=== PATIENT | female | born 1990 | race Caucasian/White ===

== ENCOUNTER 2022-07-19 11:13 | Emergency (ER) | payer OTHER, MEDICAID, SELFPAY ==
[2022-07-19 11:24] VITALS: BP 125/75; PULSE 65; RESP 15; TEMP 36.7; O2SAT 96; BMI 39.9
[2022-07-19 11:57] VITALS: O2SAT 100
[2022-07-19 11:59] VITALS: BP 128/72; PULSE 71; O2SAT 96
[2022-07-19 12:00] VITALS: PULSE 74; O2SAT 97
[2022-07-19 12:00] LABS: Bacteria Urine None Seen; Culture Indicated Urine Cult Not Indicated; Mucus Urine 2+ (Negative); RBC Urine None Seen (0-5/HPF); WBC Urine 1-5/HPF (0-5/HPF)
--- NOTE | 2022-07-19 12:08 | DI.RAD.S_ITS ---
PROCEDURE: XR CHEST 2V INDICATIONS: pneumonia vs reactive airway TECHNIQUE: 2 views of the chest were acquired. COMPARISON: None. FINDINGS: Surgical changes and devices: None. Lungs and pleura: Lungs are clear. No pleural effusions or pneumothorax. Mediastinum: Mediastinal contours are normal. Heart size is normal. Bones and chest wall: No suspicious bony abnormalities. Soft tissues appear unremarkable. IMPRESSION: No evidence acute pulmonary process. Dictated by: Felipe Chávez M.D. on 07/19/2022 at 12:51 Approved by: Felipe Chávez M.D. on 07/19/2022 at 12:52
[2022-07-19] MEDS: KETOROLAC 30 MG/ML VIAL 15 MG IM (12:20)
[2022-07-19] MEDS: ONDANSETRON 4 MG ODT SL (12:21)
[2022-07-19] MEDS: ALBUTEROL/IPRATROPIUM 3 ML AMPUL INH (12:26)
--- NOTE | 2022-07-19 12:29 | ED_ITS ---
HPI - Abdominal Pain <ALEXI Bradley - Last Filed: 07/19/22 14:23> General Chief Complaint: Abdominal Pain Stated Complaint: stomach paincontraction like, Throwing up, nausa Time Seen by Provider: 07/19/22 12:03 Source: patient Mode of arrival: Ambulatory History of Present Illness HPI narrative: This is a 32-year-old female presents to the emergency department with epigastric cramping sensation after having 4 days of cough, congestion, nausea, vomiting, diarrhea, and concern for influenza respiratory illness. Patient endorses having a wet cough, having exposure to influenza a, and denies chest pain, difficulty breathing, or chest tightness. She states that she is using albuterol inhaler in the past for illness symptoms. Related Data Previous Rx's Medication Instructions Recorded albuterol sulfate 90 mcg/actuation 1 puff inhalation QID PRN 07/19/22 aerosol inhaler shortness of breath or wheezing #8.5 grams guaifenesin 400 mg tablet 400 mg PO QID PRN cough #14 tabs 07/19/22 ondansetron 4 mg disintegrating 4 mg PO Q8H PRN nausea and 07/19/22 tablet vomiting #10 tabs Allergies Allergy/AdvReac Type Severity Reaction Status Date / Time azithromycin Allergy Verified 07/19/22 11:29 Review of Systems <ALEXI Bradley - Last Filed: 07/19/22 14:23> Review of Systems Narrative: Review of systems is negative for acute abnormalities unless otherwise noted in HPI Patient History <ALEXI Bradley - Last Filed: 07/19/22 14:23> Social History Smoking Status: Unknown if ever smoked Smoking Status: Unknown if ever smoked alcohol intake frequency: holidays/special occasions only Substance Use Type: marijuana Exam <ALEXI Bradley - Last Filed: 07/19/22 14:23> Narrative Exam Narrative: Reviewed vitals signs and nursing notes. General: cooperative, comfortable, in no acute distress, well groomed, afebrile HEENT: symmetrical facial expressions, moist mucous membranes Cardiovascular: regular rate and rhythm, no peripheral edema, warm extremities Respiratory: normal effort, able to speak in complete sentences, without expiratory wheezes bilaterally, coarse in bilateral lower lobes, without stridor, or retractions, congestion present, wet sounding cough, wheezes improved after DuoNeb, squeaks were auscultated in bilateral bases before GI: abdomen soft, nontender to palpation, nondistended, without masses, rebound tenderness or exquisite tenderness with exam. MSK: moves all extremities, neurovascularly intact, no weakness, normal tone Skin: brisk capillary refill, without pallor or erythema Neuro: normal speech and cognition, A&O x3, ambulatory, clear speech Psych: mental status is grossly normal, congruent mood, normal affect, pleasant and cooperative Initial Vital Signs Initial Vital Signs: Vital Signs Temperature 98.0 F 07/19/22 11:24 Pulse Rate 65 07/19/22 11:24 Respiratory Rate 15 07/19/22 11:24 Blood Pressure 125/75 07/19/22 11:24 Pulse Oximetry 96 07/19/22 11:24 Oxygen Delivery Method 07/19/22 11:24 <Eric Barney DO - Last Filed: 07/19/22 14:34> Initial Vital Signs Initial Vital Signs: Vital Signs Temperature 98.0 F 07/19/22 11:24 Pulse Rate 65 07/19/22 11:24 Respiratory Rate 15 07/19/22 11:24 Blood Pressure 125/75 07/19/22 11:24 Pulse Oximetry 96 07/19/22 11:24 Oxygen Delivery Method 07/19/22 11:24 Course <ALEXI Bradley - Last Filed: 07/19/22 14:23> Orders Ordered: ED Orders 07/19/22 11:22 Urine Microscopic Stat 07/19/22 12:08 XR chest 2V Stat 07/19/22 13:10 Covid-19 + FLU A/B + RSV - PCR Stat Discontinued Medications Albuterol (Albuterol Hfa Prepack) 1 box MISC SEEINSTR ONE Stop: 07/19/22 12:41 Last Admin: 07/19/22 13:08 Dose: Not Given Documented By: MARGA Albuterol/Ipratropium (Albuterol/Ipratropium 3 Ml Ampul) 3 ml INH NOW ONE Stop: 07/19/22 12:09 Last Admin: 07/19/22 12:26 Dose: 3 ml Documented By: JK Al Hydrox/Mg Hydrox/Simethicone 20 ml/ Lidocaine HCl 15 ml 0 ml PO NOW ONE Stop: 07/19/22 12:31 Last Admin: 07/19/22 12:45 Dose: 35 ml Documented By: MARGA Dexamethasone (Dexamethasone 10 Mg/Ml Vial) 10 mg PO NOW ONE Stop: 07/19/22 12:41 Last Admin: 07/19/22 12:48 Dose: 10 mg Documented By: MARGA Ketorolac Tromethamine (Ketorolac 30 Mg/Ml Vial) 15 mg IM NOW ONE Stop: 07/19/22 12:09 Last Admin: 07/19/22 12:20 Dose: 15 mg Documented By: MARGA Ondansetron HCl (Ondansetron 4 Mg Odt) 4 mg SL NOW ONE Stop: 07/19/22 12:09 Last Admin: 07/19/22 12:21 Dose: 4 mg Documented By: MARGA Vital Signs Vital signs: Vital Signs - 8 hr 07/19/22 11:24 07/19/22 11:57 07/19/22 11:59 Temperature 98.0 F Pulse Rate 65 71 Respiratory Rate 15 Blood Pressure 125/75 Pulse Oximetry 96 100 96 Oxygen Delivery Method Room Air 07/19/22 11:59 07/19/22 12:00 07/19/22 12:30 Temperature Pulse Rate 74 82 Respiratory Rate Blood Pressure 128/72 Pulse Oximetry 97 98 Oxygen Delivery Method 07/19/22 13:00 Temperature Pulse Rate 64 Respiratory Rate Blood Pressure Pulse Oximetry 95 Oxygen Delivery Method <Eric Barney DO - Last Filed: 07/19/22 14:34> Orders Ordered: ED Orders 07/19/22 11:22 Urine Microscopic Stat 07/19/22 12:08 XR chest 2V Stat 07/19/22 13:10 Covid-19 + FLU A/B + RSV - PCR Stat Discontinued Medications Albuterol (Albuterol Hfa Prepack) 1 box MISC SEEINSTR ONE Stop: 07/19/22 12:41 Last Admin: 07/19/22 13:08 Dose: Not Given Documented By: MARGA Albuterol/Ipratropium (Albuterol/Ipratropium 3 Ml Ampul) 3 ml INH NOW ONE Stop: 07/19/22 12:09 Last Admin: 07/19/22 12:26 Dose: 3 ml Documented By: FREDY Zavala Hydrox/Mg Hydrox/Simethicone 20 ml/ Lidocaine HCl 15 ml 0 ml PO NOW ONE Stop: 07/19/22 12:31 Last Admin: 07/19/22 12:45 Dose: 35 ml Documented By: MARGA Dexamethasone (Dexamethasone 10 Mg/Ml Vial) 10 mg PO NOW ONE Stop: 07/19/22 12:41 Last Admin: 07/19/22 12:48 Dose: 10 mg Documented By: MARGA Ketorolac Tromethamine (Ketorolac 30 Mg/Ml Vial) 15 mg IM NOW ONE Stop: 07/19/22 12:09 Last Admin: 07/19/22 12:20 Dose: 15 mg Documented By: MARGA Ondansetron HCl (Ondansetron 4 Mg Odt) 4 mg SL NOW ONE Stop: 07/19/22 12:09 Last Admin: 07/19/22 12:21 Dose: 4 mg Documented By: MARGA Vital Signs Vital signs: Vital Signs - 8 hr 07/19/22 11:24 07/19/22 11:57 07/19/22 11:59 Temperature 98.0 F Pulse Rate 65 71 Respiratory Rate 15 Blood Pressure 125/75 Pulse Oximetry 96 100 96 Oxygen Delivery Method Room Air 07/19/22 11:59 07/19/22 12:00 07/19/22 12:30 Temperature Pulse Rate 74 82 Respiratory Rate Blood Pressure 128/72 Pulse Oximetry 97 98 Oxygen Delivery Method 07/19/22 13:00 Temperature Pulse Rate 64 Respiratory Rate Blood Pressure Pulse Oximetry 95 Oxygen Delivery Method MDM - Abdominal Pain <Jennifer Cerrato [facility] - Last Filed: 07/19/22 14:23> Lab Data Labs: Lab Results 07/19/22 07/19/22 Range/Units 11:22 13:10 Urine RBC None seen (0-5/HPF) Urine WBC 1-5/hpf (0-5/HPF) Urine Bacteria None seen (None) Urine Mucus 2+ H (Negative) Ur Culture Indicated? Cult not indicated SARS-CoV-2 (PCR) Negative (Negative) Influenza A (RT-PCR) Flu a positive H (NEGATIVE) Influenza B (RT-PCR) Flu b negative (NEGATIVE) RSV (PCR) Negative (Negative) Point of care testing: Point of Care Testing Test Results Negative Urine Dip Bedside Urine Glucose Negative Bedside Urine Bilirubin + 1 Bedside Urine Ketone +/- 5 Urine Specific [place] 1.030 Bedside Urine Occult Blood +++ Bedside Urine pH 6.0 Bedside Urine Protein ++ 100 Bedside Urine Urobilinogen - Negative Bedside Urine Nitrite - Negative Bedside Urine Leukocytes - Negative Esterase Imaging Data Chest x-ray: Radiologist's Impression: PROCEDURE:? XR CHEST 2V ? INDICATIONS:? pneumonia vs reactive airway ? TECHNIQUE:? 2 views of the chest were acquired.? ? COMPARISON:? None. ? FINDINGS:? ? Surgical changes and devices:? None.? ? Lungs and pleura:? Lungs are clear.? No pleural effusions or pneumothorax.? ? Mediastinum:? Mediastinal contours are normal.? Heart size is normal.? ? Bones and chest wall:? No suspicious bony abnormalities.? Soft tissues appear unremarkable.? ? IMPRESSION:? No evidence acute pulmonary process. ? ? ? Dictated by: Felipe Chávez M.D. on 07/19/2022 at 12:51 ? ? Approved by: Felipe Chávez M.D. on 07/19/2022 at 12:52 ? MDM Narrative Medical decision making narrative: This is a 32-year-old female presents to the emergency department with upper respiratory infections symptoms lasting last 4 days. She tested influenza A positive on her 4th day of symptoms without hypoxia, respiratory distress, dehydration, or focal exam to suggest secondary bacterial infection. She had expiratory wheezes bilaterally and mild shortness of breath, this improved after a DuoNeb, chest x-ray does not show patchy infiltrate or opacity. She was given Zofran and guaifenesin, and an albuterol inhaler for symptom management at home. Discussed CDC guidelines for quarantine, mask wearing, physical distancing, and infection prevention measures such as frequent handwashing. Discussed supportive treatments: Tylenol/Motrin as needed for pain/fever. OTC decongestant medications and/or antihistamines for symptomatic relief. Maintain adequate fluid intake. Follow-up with PCP as directed. Return to clinic/ER instructions discussed for new, not improving, or worsening symptoms. All questions answered. <Eric Barney, - Last Filed: 07/19/22 14:34> Lab Data Labs: Lab Results 07/19/22 07/19/22 Range/Units 11: 13:10 Urine RBC None seen (0-5/HPF) Urine WBC 1-5/hpf (0-5/HPF) Urine Bacteria None seen (None) Urine Mucus 2+ H (Negative) Ur Culture Indicated? Cult not indicated SARS-CoV-2 (PCR) Negative (Negative) Influenza A (RT-PCR) Flu a positive H (NEGATIVE) Influenza B (RT-PCR) Flu b negative (NEGATIVE) RSV (PCR) Negative (Negative) Point of care testing: Point of Care Testing Test Results Negative Urine Dip Bedside Urine Glucose Negative Bedside Urine Bilirubin + 1 Bedside Urine Ketone +/- 5 Urine Specific [place] 1.030 Bedside Urine Occult Blood +++ Bedside Urine pH 6.0 Bedside Urine Protein ++ 100 Bedside Urine Urobilinogen - Negative Bedside Urine Nitrite - Negative Bedside Urine Leukocytes - Negative Esterase Discharge Plan Departure Patient Disposition: Home Clinical Impression: Upper respiratory infection, viral Instructions: Influenza, DI for Viral Upper Respiratory Infection -- Adult, DI for Vomiting -- Adult Activity Restrictions/Additional Instructions: *You have been diagnosed with viral upper respiratory infection which could be the flu, please stay hydrated, take Tylenol and ibuprofen every 6-8 hours as needed for pain and fever. Please take Zofran every 8 hours for nausea and vomiting, guaifenesin as needed for productive cough, and use your albuterol i nhaler for frequent cough, shortness of breath, wheezing or breathing like you are when you came in. You can call the number below to set up primary care with 1 of the providers here, please return for any worsening. Hope you feel better soon. *What to do: *Please continue to take your regular medications as directed. [x ] New medication prescriptions sent to your pharmacy: [[facility] ] [ ] New medication written as a paper prescription [ ] No new medications given *Please follow up with your primary care provider in 2-3 days, call for an appoi ntment. Let them know you were seen in the Emergency Department and that we asked that you be seen for follow-up. We will electronically transmit a record of today's note if your PCP is in our system *If you do not have a primary care provider please contact [phone] to establish care with one of the [facility] primary care providers. *Return to Emergency Department if you should have any new, worsening, or concerning symptoms, such as [fever greater than 101F, chills, worsening pain, persistent vomiting or other bothersome symptoms]. Prescriptions: New albuterol sulfate 90 mcg/actuation HFA aerosol inhaler 1 puff inhalation QID PRN (Reason: shortness of breath or wheezing) Qty: 8.5 0RF ondansetron 4 mg tablet,disintegrating 4 mg PO Q8H PRN (Reason: nausea and vomiting) Qty: 10 0RF guaifenesin 400 mg tablet 400 mg PO QID PRN (Reason: cough) Qty: 14 0RF Visit Report Forms: Patient Portal/API <Eric Barney, DO - Last Filed: 07/19/22 14:34> Cosign ED Attending Cosignature Attestation: Dr Barney Co-Sign Statement: I was available for consultation during this patient's emergency department visit. This chart is signed by myself for administrative purposes only. I did not have direct contact with this patient during this visit. They were seen independently by the APC.
[2022-07-19 12:30] VITALS: PULSE 82; O2SAT 98
[2022-07-19] MEDS: MAG HYDROX/ALUMINUM/SIMETH SUS 20 ML, LIDOCAINE VISCOUS 2% 15 ML PO (12:45)
[2022-07-19] MEDS: DEXAMETHASONE 10 MG/ML VIAL PO (12:48)
[2022-07-19 13:00] VITALS: PULSE 64; O2SAT 95
[2022-07-19 14:11] LABS: Influenza A - CEPHEID Flu A POSITIVE (NEGATIVE); Influenza B - CEPHEID Flu B NEGATIVE (NEGATIVE); Respiratory Syncytial Virus Negative (Negative)
[2022-07-19 14:16] LABS: COVID-19 CEPHEID 4-PLEX PCR Negative (Negative)
== END 2022-07-19 13:34 | disposition home or self-care (01) ==
PROVIDERS: Emergency Medicine; Emergency Provider Nurse Practitioner Critical Care Medicine
DX: J06.9 Acute upper respiratory infection, unspecified (principal); Z20.822 Contact with and (suspected) exposure to COVID-19
CPT/HCPCS: 0241U; 71046; 81003; 81015; 81025; 96372; 99283; 99284; J1100; J1885